=== PATIENT | female | born 1985 | race Hispanic/Latino ===

== ENCOUNTER 2018-06-20 12:23 | Emergency (ER) | payer OTHER ==
[2018-06-20] MEDS ORDERED: Albuterol-Ipratrop 3 mg / 0.5 (3 ml) UD IH STA ×2 (12:42→14:10)
[2018-06-20] MEDS ORDERED: Sodium Chloride 0.9% 1,000 ML IV STA (12:42)
--- NOTE | 2018-06-20 12:47 | ED PDOC ---
HPI: General Adult Time Seen by Provider: 06/20/18 12:34 Chief Complaint (Provider): allergic reaction History Per: Patient History/Exam Limitations: no limitations Onset/Duration Of Symptoms: Days () Additional Complaint(s): Pt. with itching that started Tues. Wed developed rash all over and face. Went to [facility] and given benadryl and prednisone. She took 2 pills yesterday of the prednisone. Today rash came back and lip felt tingling so went back there. Was given 2 epi pens (1 in each arm). States rash went away completely. Went home and rash started coming back to the face and all over. She spoke with Chauncey MAYA and was told to take 3 prednisone pills and 2 benadryl which she took 1 hr ferry boat [employer]. Came as her throat felt itchy. States when she gets sick her asthma kicks in. No dyspnea. No chest pain. No new food, drinks, food, or anything different. Has seen an pharmacy ancillary in the past when she got a rash and found out she was allergic to nickel. Possibly to avocado. Past Medical History Reviewed: Nursing Documentation, Vital Signs Vital Signs: Last Vital Signs Temp 98.1 F 06/20/18 12:33 Pulse 105 H 06/20/18 12:33 Resp 17 06/20/18 12:33 BP 134/75 06/20/18 12:33 Pulse Ox 100 06/20/18 12:33 - Medical History PMH: Asthma - Surgical History Surgical History: No Surg Hx - Family History Family History: States: Unknown Family Hx - Home Medications Home Medications: Ambulatory Orders Medication Instructions Recorded DiphenhydrAMINE [Benadryl] 25 mg PO TID PRN 5 Days cap 06/20/18 Epinephrine [Epipen] 0.3 mg SQ ONCE PRN #3 auto.injct 06/20/18 Famotidine [Pepcid] 20 mg PO DAILY PRN #6 tab 06/20/18 predniSONE [predniSONE Tab] 20 mg PO BID 5 Days tab 06/20/18 - Allergies Allergies/Adverse Reactions: Allergies Allergy/AdvReac Type Severity Reaction Status Date / Time Unobtainable Allergy Verified 06/20/18 12:34 Review of Systems ROS Statement: Except As Marked, All Systems Reviewed And Found Negative ENT: Positive for: Other (throat itchy) Skin: Positive for: Rash Physical Exam - Reviewed Nursing Documentation Reviewed: Yes Vital Signs Reviewed: Yes - Physical Exam Appears: Positive for: Non-toxic, No Acute Distress Head Exam: Positive for: ATRAUMATIC, NORMAL INSPECTION, NORMOCEPHALIC Skin: Positive for: Rash (in patches on face, arms, abd, chest, back, upper legs in an urticarial pattern: is blanching erythema. No dc, induration. ) Eye Exam: Positive for: EOMI, Normal appearance, PERRL ENT: Positive for: Other (no tongue, lip, or oral swelling). Negative for: Nasal Congestion Neck: Positive for: Painless ROM, Supple Cardiovascular/Chest: Positive for: Regular Rate, Rhythm. Negative for: Edema Respiratory: Positive for: Wheezing (trace end expiration.) Gastrointestinal/Abdominal: Positive for: Soft. Negative for: Tenderness Back: Negative for: L CVA Tenderness, R CVA Tenderness Extremity: Positive for: Normal ROM. 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 Negative for: Motor/Sensory Deficits - ECG O2 Sat by Pulse Oximetry: 100 Pulse Ox Interpretation: Normal - Progress ED Course And Treament: 1456: Stable. AAOx3. Pain free. No rashes. Speaking with no issues. Feels much better. Disposition - Clinical Impression Clinical Impression: Allergic reaction - Patient ED Disposition Is Patient to be Admitted: No Counseled Patient/Family Regarding: Studies Performed, Diagnosis, Need For Followup, Rx Given - Disposition Referrals: [facility] [Outside] - 06/24/18 Disposition: Routine/Home Disposition Time: 14:59 Condition: STABLE Additional Instructions: Return if not better in 3 days. Prescriptions: DiphenhydrAMINE [Benadryl] 25 mg PO TID PRN 5 Days cap PRN Reason: Itching / Pruritus Epinephrine [Epipen] 0.3 mg SQ ONCE PRN #3 auto.injct PRN Reason: Anaphylaxis Famotidine [Pepcid] 20 mg PO DAILY PRN #6 tab PRN Reason: Pain predniSONE [predniSONE Tab] 20 mg PO BID 5 Days tab Instructions: Hives Forms: [facility] (Bengali), [facility] ED School/Work Excuse
[2018-06-20 13:22] VITALS: BP 134/75; PULSE 105; RESP 17; TEMP 98.1; O2SAT 100
[2018-06-20] MEDS ORDERED: Albuterol-Ipratrop 3 mg / 0.5 (3 ml) UD ONE ×2 (13:38→15:14)
--- NOTE | 2018-06-20 22:21 | CARD ---
APPROVED REPORT Date of service: 06/20/2018 EKG Measurement Heart [id number] <Conclusion> Normal sinus rhythm Normal ECG
== END 2018-06-20 15:51 | disposition home or self-care (01) ==
LOC: H.ER 12:23
DX: T78.40XA Allergy, unspecified, initial encounter (principal); R06.2 Wheezing
CPT/HCPCS: 81025; 93005; 94640; 96361; 96374; 96375; 99283; J2930; J7030